=== PATIENT | male | born 1990 | race Caucasian/White ===

== ENCOUNTER 2023-05-07 17:13 | Emergency (ER) | payer SELFPAY ==
[2023-05-07 17:13] VITALS: BP 138/60; PULSE 125; RESP 19; TEMP 37.3; O2SAT 100
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
[2023-05-07 17:18] VITALS: BP 138/60; PULSE 125; RESP 19; TEMP 37.3; O2SAT 100
--- NOTE | 2023-05-07 17:26 | PC.NURSE ---
patient has come out of room 3 times wondering, states he is going to leave and his mother is coming to get him. patient signed AMA form following ERP explain risk of leaving without treatment . Patient verbalized understanding and has walked outside with steady gait.
[2023-05-07 17:46] LABS: Appearance Urine Clear (Clear); Bilirubin Urine Negative (Negative); Blood Urine Negative (Negative); Color Urine Light Yellow (Yellow); Glucose Urine UA Negative (Negative); Ketones Urine Negative (Negative); Leukocyte Esterase Ur Negative LEU/UL (Negative); Nitrate Urine Negative (Negative); Protein Urine Negative (Negative)
[2023-05-07 17:49] LABS: Add Urine Microscopic? NO
[2023-05-07 17:53] LABS: Amphetamine Screen Urine Negative (Negative); Barbiturate Screen Urine Negative (Negative); Benzodiazepines Screen Urine Positive (Negative); Cannabinoid Screen Urine Negative (Negative); Cocaine Screen Urine Negative (Negative); Methadone Screen Urine Negative (Negative); Opiate Screen Urine Negative (Negative); Phencyclidine Screen Urine Negative (Negative)
--- NOTE | 2023-05-12 13:32 | PC.NURSE ---
RN attempted to call both phone numbers on file, no answer, messages left for patient to call ER.
--- NOTE | 2023-05-12 17:33 | PC.NURSE ---
patient called back to ED. [facility] [id number] per patient request, Levaquin 500mg take 1 tablet po daily x10 days. #10, [address] Perez. RN spoke with yumi
== END 2023-05-07 17:26 | disposition left against medical advice (07) ==
PROVIDERS: Emergency Provider Family Medicine
DX: S81.801A Unspecified open wound, right lower leg, initial encounter (principal); X58.XXXA Exposure to other specified factors, initial encounter; Z53.29 Procedure and treatment not carried out because of patient's decision for other reasons
CPT/HCPCS: 80307; 81003; 87070; 87147; 87186; 87205; 99283